=== PATIENT | female | born 1990 | race Caucasian/White ===

== ENCOUNTER 2017-05-12 22:18 | Emergency (ER) | payer SELFPAY | END 2017-05-12 23:40 | disposition home or self-care (01) | LOC: CFTX 22:18 → CED 22:18 → CFTX 23:39 | DX: L03.211 Cellulitis of face (principal); L03.114 Cellulitis of left upper limb; L03.113 Cellulitis of right upper limb; K21.9 Gastro-esophageal reflux disease without esophagitis; F17.210 Nicotine dependence, cigarettes, uncomplicated; Z88.5 Allergy status to narcotic agent | CPT/HCPCS: 99282 ==